=== PATIENT | female | born 1970 | race Caucasian/White ===

== ENCOUNTER 2021-05-11 19:49 | Emergency (ER) | payer OTHER ==
[~2021-05-11] VITALS: Ht 175.3 cm; Wt 86.2 kg
[~2021-05-11 19:49] MED LIST: NOHOMEMEDICATIONS; PROVENTIL HFA6.7 G1 INH; ZYRTEC-D TABLE1 EAC1 PO
[2021-05-11] MEDS ORDERED: PHENERGAN 25 MG25 MG PO (21:17)
[2021-05-11] MEDS ORDERED: ACETAMINOPHEN-1 EAC2 PO (21:17)
[2021-05-11] MEDS ORDERED: TESSALON PERLE100 M1 PO (21:17)
[2021-05-11 21:28] VITALS: BP 163/86
== END 2021-05-11 21:29 | disposition home or self-care (01) ==
LOC: M.ERS 19:49
DX: R07.89 Other chest pain (principal); R05 Cough; Z90.49 Acquired absence of other specified parts of digestive tract